=== PATIENT | female | born 1935 | race African-American/Black ===

== ENCOUNTER 2020-03-21 04:19 | Day surgery (SDC) | payer OTHER ==
[2020-03-20 13:32] VITALS: BMI 22.6
[2020-03-21] MEDS ORDERED: ceFAZolin SODIUM 1 GM VIAL IVPB ONE (10:57)
--- NOTE | 2020-03-21 11:13 | OP ---
Operative Note - Note: Operative Date: 03/21/20 Pre-Operative Diagnosis: Left renal stone Operation: Left ESWL Post-Operative Diagnosis: Same as Pre-op Surgeon: Mukesh Henry MD. Anesthesia: General, MAC
[2020-03-21 12:10] VITALS: TEMP 98.1
[2020-03-21] MEDS ORDERED: ACETAMINOPHEN 325 MG TABLET (FP) ONE (12:32)
[2020-03-21] MEDS ORDERED: ONDANSETRON 4 MG/2 ML VIAL IVPUSH PRN (12:33)
[2020-03-21] MEDS ORDERED: ACETAMINOPHEN 325 MG TABLET (FP) PO PRN (12:33)
[2020-03-21] MEDS ORDERED: LACTATED RINGERS SOLUTION 1,000 ML IV SCH (12:45)
--- NOTE | 2020-03-21 15:07 | OP ---
DATE OF OPERATION: 03/21/2020 PREOPERATIVE DIAGNOSIS: Left renal calculi. POSTOPERATIVE DIAGNOSIS: Left renal calculi. PROCEDURE: Left extracorporeal shock wave lithotripsy. 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 Patient's mental status has somewhat deteriorated since her initial scheduling. After discussion with her daughter it was recommended to continue with treatment due to the patient's prior history of infections. All risks and benefits were discussed with the family. Risks and benefits of treatment, alternative treatments were also discussed including observation. BRIEF OPERATIVE NOTE: Patient was brought to the operating room, placed in the supine position. Once the stones were visualized in the left kidney, a timeout was performed. Intravenous antibiotics were given. Patient was then sedated. Approximately 2500 shocks were delivered in electromagnetic fashion. The patient tolerated the procedure well and was brought to recovery room in stable and satisfactory condition. GRACIELA JONES M.D. [id number]
[2020-03-21 16:09] VITALS: BP 120/60; PULSE 76
== END 2020-03-21 13:00 | disposition home or self-care (01) ==
LOC: JASU-SURG 04:19
PROVIDERS: ATTEND Urology
PROC: 0TF4XZZ Fragmentation in Left Kidney Pelvis, External Approach (ICD-10-PCS; principal; 2020-03-21 10:30)
DX: N20.0 Calculus of kidney (principal)
CPT/HCPCS: 82962; 94760